=== PATIENT | female | born 1955 | race African-American/Black ===

== ENCOUNTER 2019-04-04 07:47 | Day surgery (SDC) | payer OTHER ==
[2019-04-02 09:37] VITALS: BMI 21.1
[2019-04-04 08:25] VITALS: TEMP 97.8
[2019-04-04] MEDS ORDERED: PROPOFOL 20 ML ONE ×2 (09:08)
[2019-04-04 10:34] VITALS: BP 117/69; PULSE 63
== END 2019-04-04 10:20 | disposition home or self-care (01) ==
LOC: FASU-ENDO 07:47
PROVIDERS: ATTEND Internal Medicine Gastroenterology
PROC: 0DJD8ZZ Inspection of Lower Intestinal Tract, Via Natural or Artificial Opening Endoscopic (ICD-10-PCS; principal; 2019-04-04 09:20)
DX: K59.00 Constipation, unspecified (principal)